=== PATIENT | female | born 1970 | race Caucasian/White ===

== ENCOUNTER 2017-07-16 21:29 | Emergency (ER) | payer OTHER ==
[~2017-07-16] VITALS: Ht 168.9 cm; Wt 61.6 kg
[2017-07-16 21:36] VITALS: TEMP 37.3; Ht 168.9 cm; Wt 61.6 kg
[2017-07-16] MEDS ORDERED: ONDANSETRON 4MG OD TAB PO STA (22:08)
[2017-07-16] MEDS ORDERED: ACETAMINOPHEN/CODEINE 300/30MG TAB PO STA (22:08)
--- NOTE | 2017-07-16 22:20 | EMERGENCY ROOM VISIT NOTE ---
History Report prepared by Carmela: Concha Pagan Under the Supervision of: Dr. Jon Gonzalez M.D. First contact with patient: 22:04 Chief Complaint: HEADACHE Stated Complaint: SEQUEIRA,PAIN,BLACK EYE FROM FALL,DIZZY,OFF BALANCE,NAUS History of Present Illness The patient is a 47 year old female who presents to the Emergency Room with complaints of persistent headache starting last night. The patient fell and hit the right side of her head in the shower last night. She lost consciousness and does not remember what happened afterwards. She has had a headache and soreness in the right side of her neck since her fall. She also has some soreness in her right wrist. She had felt dizzy and nauseous. She denies any abdominal pain, chest pain, hip pain, or leg pain. Source of History: patient Onset: last night Position: head Quality: ache Timing: other (persistent) Associated Symptoms: + LOC, + neck pain, + nausea, No chest pain, No abdominal pain Note: Pt reports dizziness. Pt denies hip pain, leg pain. Review of Systems See HPI for pertinent positives & negatives. A total of 10 systems reviewed and were otherwise negative. Past Medical & Surgical Medical Problems: (1) Asthma Family History Cancer Diabetes mellitus Heart disease Hypertension Lung disease Social History Smoking Status: Former Smoker Housing Status: lives with family Occupation Status: employed Current/Historical Medications Scheduled Acetaminophen W/ Codeine (Tylenol W/Codeine #3), 1 TAB PO Q6 Ashwagandha (Withana Somnfera) (Ashwagandha), Unknown Dose PO DAILY Magnesium (Magnesium), 250 MG PO DAILY [Energy Suppliment], Unknown Dose PO DIRECTED Allergies Coded Allergies: Latex1 -Allergic Contact Dermititis (Verified Allergy, Mild, GLOVES- IRRITATION, 07/16/17) Penicillins (Verified Allergy, Unknown, UNKNOWN, 07/16/17) Physical Exam Vital Signs Date Time Temp Pulse Resp B/P (MAP) Pulse Ox O2 Delivery O2 Flow Rate FiO2 07/17/17 00:13 66 18 110/70 98 Room Air 07/16/17 23:36 68 18 106/69 96 Room Air 07/16/17 21:36 37.3 84 16 119/77 98 Room Air Physical Exam GENERAL: Patient is a healthy-appearing well-nourished female HEAD: Hematoma to the right eye orbit EYES: Ocular movements intact pupils equal and react to light OROPHARYNX mucous membranes are moist no exudates present no erythema or edema present NECK: Supple no nuchal rigidity CHEST: Good equal expansion LUNGS: Clear and equal to auscultation CARDIAC: Normal S1 and S2 ABDOMEN: Soft nontender no guarding BACK: No CVA tenderness EXTREMITIES: No pain upon palpation normal muscle strength in all groups no clubbing cyanosis or edema NEURO: Patient is following commands and answering questions appropriately. Alert and oriented x3 Cranial Nerves 2-12 grossly intact Medical Decision & Procedures ER Provider Diagnostic Interpretation: Radiology results as stated below per my review and radiologist interpretation: CERVICAL SPINE W/O CT DOSE: 428.87 mGycm CLINICAL HISTORY: 47 years-old Female with Pt c/o Rt sided neck pain . Acute right-sided neck pain COMPARISON: CT maxillofacial same day. TECHNIQUE: Multiple axial CT images of the cervical spine were obtained without contrast. A dose lowering technique was utilized adhering to the principles of ALARA. FINDINGS: Vertebral body heights and alignment are normal. No fracture or subluxation is identifed. The intervertebral disc spaces are preserved. No significant central canal or neural foraminal stenosis is identified. Small posterior disc bulge is present at C5-C6 without significant central canal or foraminal narrowing. The cervical soft tissues appear unremarkable. The visualized lung apices appear clear. IMPRESSION: 1. No acute cervical spine fracture or subluxation. 2. Small posterior disc bulge at C5-C6 without significant central canal or foraminal narrowing. The above report was generated using voice recognition software. It may contain grammatical, syntax or spelling errors. Electronically signed by: Flynn Galindo M.D. 07/16/2017 11:33 PM Dictated Date/Time: 07/16/2017 11:31 PM HEAD WITHOUT CONTRAST (CT) CLINICAL HISTORY: 47 years-old Female with Pt c/o headache. Acute headache. TECHNIQUE: Multiple axial CT images of the head were obtained without contrast. A dose lowering technique was utilized adhering to the principles of ALARA. CT DOSE: 638.56 mGycm COMPARISON: CT maxillofacial same day. FINDINGS: No acute intracranial hemorrhage, midline shift, mass, large territorial ischemia or abnormal extra-axial collection. The calvarium is intact. The paranasal sinuses, mastoid air cells, and middle ear cavities are clear. IMPRESSION: No acute intracranial abnormality. The above report was generated using voice recognition software. It may contain grammatical, syntax or spelling errors. Electronically signed by: Flynn Galindo M.D. 07/16/2017 10:49 PM Dictated Date/Time: 07/16/2017 10:48 PM FACIAL BONES-MXILLOFAC WITHOUT CLINICAL HISTORY: 47 years-old Female presenting with Pt c/o Rt eye pain. Acute right eye pain status post trauma COMPARISON STUDY: CT cervical spine of same day TECHNIQUE: High-resolution CT scan of the facial bones is performed. Images are reviewed in the axial, sagittal, and coronal planes. IV contrast was not administered for this examination. A dose lowering technique was utilized adhering to the principles of ALARA. CT DOSE: 542.52 mGycm FINDINGS: There is no evidence of facial bone fracture. The bony orbits are intact and the orbital contents are within normal limits. The zygomatic arches, nasal bones, and pterygoid plates are preserved. The maxilla and mandible are intact. The paranasal sinuses and mastoid air cells are clear. The imaged calvarium and upper cervical spine are within normal limits. Partially imaged brain parenchyma is within normal limits. There are mild degenerative changes of the temporal mandibular joints. IMPRESSION: No evidence of facial bone fracture or focal soft tissue abnormality. The above report was generated using voice recognition software. It may contain grammatical, syntax or spelling errors. Electronically signed by: Flynn Galindo M.D. 07/16/2017 11:31 PM Dictated Date/Time: 07/16/2017 11:27 PM Medications Administered Medications (Trade) Dose Ordered Sig/Holly Route Start Time Stop Time Status Last Admin Dose Admin Acetaminophen/ Codeine Phosphate (Tylenol w/ Codeine #3 Tab) 2 tab NOW STAT PO 07/16/17 22:08 07/16/17 22:10 DC 07/16/17 22:15 2 TAB Acetaminophen/ Codeine Phosphate (TYLENOL W/ CODEINE #3 Home Pack) 1 homepack UD ONCE PO 07/17/17 00:00 07/17/17 00:01 DC 07/17/17 00:07 1 HOMEPACK ED Course 2205: Past medical records reviewed. The patient was evaluated in room B11A. A complete history and physical examination was performed. 2207: Acetaminophen/Codeine Phosphate 2 tab PO. 2344: Upon reexamination the patient is resting comfortably. I discussed results and treatment plan with the patient. She verbalizes agreement and understanding. The patient is ready for discharge. 0000: Acetaminophen/Codeine Phosphate 1 homepack PO. Medical Decision Differential diagnosis: Etiologies such as fracture, dislocation, intra-abdominal, pneumothorax, intrathoracic , intracranial, neurologic, as well as other traumatic pathologies were entertained. This is a 47-year-old female who presents emergency department after falling and hitting her head in the shower yesterday. Based on the fact that the patient feels like she lost consciousness at that time and is now having a severe headache she was sent for CAT scan of the head neck and face. The patient does not have any acute bone fractures or dislocations. I feel that she can be safely discharged home. In the emergency department she was given Tylenol codeine. I recommended that the patient continue taking naproxen as well as Tylenol codeine and then went over the signs and symptoms of a concussion which I feel that the patient has. Patient was in agreement with the treatment plan. Head Trauma GCS Score: 15 Medication Reconcilliation Current Medication List: was personally reviewed by me Blood Pressure Screening Patient's blood pressure: Normal blood pressure Blood pressure disposition: Did not require urgent referral Impression Primary Impression: Closed head injury Scribe Attestation The scribe's documentation has been prepared under my direction and personally reviewed by me in its entirety. I confirm that the note above accurately reflects all work, treatment, procedures, and medical decision making performed by me. Departure Information Dispostion Home / Self-Care Prescriptions Acetaminophen W/ Codeine (TYLENOL W/CODEINE #3) 1 Tab Tab 1 TAB PO Q6, #14 TAB Prov: Jon Gonzalez MD 07/16/17 Referrals Rafael Irvin, D.OCuong Forms HOME CARE DOCUMENTATION FORM, IMPORTANT VISIT INFORMATION Patient Instructions ED Head Injury Closed, My [facility] Additional Instructions You have been examined and treated today on an emergency basis only. This is not a substitute for, or an effort to provide, complete comprehensive medical care. It is impossible to recognize and treat all injuries or illnesses in a single emergency department visit. It is therefore important that you follow up closely with Dr Irvin. Call as soon as possible for an appointment. Thank you for your time and consideration. I look forward to speaking with you again soon. Please don't hesitate to call us if you have any questions. Problem Qualifiers Primary Impression: Closed head injury Encounter type: initial encounter Qualified Codes: S09.90XA - Unspecified injury of head, initial encounter
--- NOTE | 2017-07-16 22:51 | DIAGNOSTIC IMAGING REPORT ---
HEAD WITHOUT CONTRAST (CT) CLINICAL HISTORY: 47 years-old Female with Pt c/o headache. Acute headache. TECHNIQUE: Multiple axial CT images of the head were obtained without contrast. A dose lowering technique was utilized adhering to the principles of ALARA. CT DOSE: 638.56 mGycm COMPARISON: CT maxillofacial same day. FINDINGS: No acute intracranial hemorrhage, midline shift, mass, large territorial ischemia or abnormal extra-axial collection. The calvarium is intact. The paranasal sinuses, mastoid air cells, and middle ear cavities are clear. IMPRESSION: No acute intracranial abnormality. The above report was generated using voice recognition software. It may contain grammatical, syntax or spelling errors. Electronically signed by: Flynn Galindo M.D. 07/16/2017 10:49 PM Dictated Date/Time: 07/16/2017 10:48 PM
--- NOTE | 2017-07-16 23:32 | DIAGNOSTIC IMAGING REPORT ---
FACIAL BONES-MXILLOFAC WITHOUT CLINICAL HISTORY: 47 years-old Female presenting with Pt c/o Rt eye pain. Acute right eye pain status post trauma COMPARISON STUDY: CT cervical spine of same day TECHNIQUE: High-resolution CT scan of the facial bones is performed. Images are reviewed in the axial, sagittal, and coronal planes. IV contrast was not administered for this examination. A dose lowering technique was utilized adhering to the principles of ALARA. CT DOSE: 542.52 mGycm FINDINGS: There is no evidence of facial bone fracture. The bony orbits are intact and the orbital contents are within normal limits. The zygomatic arches, nasal bones, and pterygoid plates are preserved. The maxilla and mandible are intact. The paranasal sinuses and mastoid air cells are clear. The imaged calvarium and upper cervical spine are within normal limits. Partially imaged brain parenchyma is within normal limits. There are mild degenerative changes of the temporal mandibular joints. IMPRESSION: No evidence of facial bone fracture or focal soft tissue abnormality. The above report was generated using voice recognition software. It may contain grammatical, syntax or spelling errors. Electronically signed by: Flynn Galindo M.D. 07/16/2017 11:31 PM Dictated Date/Time: 07/16/2017 11:27 PM
--- NOTE | 2017-07-16 23:34 | DIAGNOSTIC IMAGING REPORT ---
CERVICAL SPINE W/O CT DOSE: 428.87 mGycm CLINICAL HISTORY: 47 years-old Female with Pt c/o Rt sided neck pain . Acute right-sided neck pain COMPARISON: CT maxillofacial same day. TECHNIQUE: Multiple axial CT images of the cervical spine were obtained without contrast. A dose lowering technique was utilized adhering to the principles of ALARA. FINDINGS: Vertebral body heights and alignment are normal. No fracture or subluxation is identifed. The intervertebral disc spaces are preserved. No significant central canal or neural foraminal stenosis is identified. Small posterior disc bulge is present at C5-C6 without significant central canal or foraminal narrowing. The cervical soft tissues appear unremarkable. The visualized lung apices appear clear. IMPRESSION: 1. No acute cervical spine fracture or subluxation. 2. Small posterior disc bulge at C5-C6 without significant central canal or foraminal narrowing. The above report was generated using voice recognition software. It may contain grammatical, syntax or spelling errors. Electronically signed by: Flynn Galindo M.D. 07/16/2017 11:33 PM Dictated Date/Time: 07/16/2017 11:31 PM
[2017-07-16] MEDS ORDERED: ACET300T2 PO (23:49)
[2017-07-16] MEDS ORDERED: [UNRECOGNIZED DRUG - OTHER] PO (23:54)
[2017-07-16] MEDS ORDERED: MAGN250T9 PO (23:54)
[2017-07-16] MEDS ORDERED: ASHW1CAP PO (23:54)
[2017-07-17] MEDS ORDERED: TYLENOL #3 HOME PACK PO ONE
[2017-07-17 00:13] VITALS: BP 110/70; PULSE 66; O2SAT 98
== END 2017-07-17 00:07 | disposition home or self-care (01) ==
LOC: C.EDB 21:30
DX: S09.90XA Unspecified injury of head, initial encounter (principal); W19.XXXA Unspecified fall, initial encounter; Y92.012 Bathroom of single-family (private) house as the place of occurrence of the external cause; J45.909 Unspecified asthma, uncomplicated; Z80.9 Family history of malignant neoplasm, unspecified; Z83.3 Family history of diabetes mellitus; Z82.49 Family history of ischemic heart disease and other diseases of the circulatory system; Z83.6 Family history of other diseases of the respiratory system; Z87.891 Personal history of nicotine dependence